=== PATIENT | female | born 1975 | race Caucasian/White ===

== ENCOUNTER 2018-03-14 07:33 | Day surgery (SDC) | payer OTHER | END 2018-03-14 16:43 | disposition home or self-care (01) | LOC: AMB-ENDOS 07:33 | DX: K57.32 Diverticulitis of large intestine without perforation or abscess without bleeding (principal); K64.0 First degree hemorrhoids ==

== ENCOUNTER → 2020-10-21 | Day surgery (SDC) | payer OTHER | END | disposition home or self-care (01) | LOC: ADM 10-14 13:00 → AMB-ENDOS 08:10 | PROVIDERS: ATTEND Colon & Rectal Surgery | DX: K62.89 Other specified diseases of anus and rectum (principal); K64.2 Third degree hemorrhoids; Z20.822 Contact with and (suspected) exposure to COVID-19 ==

== ENCOUNTER 2021-02-28 10:30 | Inpatient (IN) | payer OTHER ==
[~2021-02-28] VITALS: Ht 165.1 cm; Wt 68.0 kg
[2021-03-08] MEDS ORDERED: HYOSCYAMINE0.125 M1 (08:35)
[2021-03-08] MEDS ORDERED: ZYRTEC10 M3 (08:36)
[2021-03-08] MEDS ORDERED: MONTELUKAST SOD10 MG (08:36)
[2021-03-08] MEDS ORDERED: ITRACONAZOLE100 MG (08:36)
[2021-03-10] MEDS ORDERED: OXYC1TAB9 PO (17:20)
[2021-03-10] MEDS ORDERED: POLY119PG PO (17:20)
== END 2021-03-10 17:41 | disposition home or self-care (01) | DRG 334 ==
LOC: SURH 03-07 06:00 → O/R 03-07 07:41 → SURH 03-07 10:30 → SURG 03-07 14:27
PROVIDERS: ADMIT Colon & Rectal Surgery; ATTEND Colon & Rectal Surgery
PROC: 0UB14ZZ Excision of Left Ovary, Percutaneous Endoscopic Approach (ICD-10-PCS; 2021-03-07)
PROC: 0DTP4ZZ Resection of Rectum, Percutaneous Endoscopic Approach (ICD-10-PCS; principal; 2021-03-07 06:00)
DX: K57.32 Diverticulitis of large intestine without perforation or abscess without bleeding (principal); N83.292 Other ovarian cyst, left side; R73.9 Hyperglycemia, unspecified; E16.1 Other hypoglycemia; Z20.822 Contact with and (suspected) exposure to COVID-19